=== PATIENT | male | born 1930 | race Caucasian/White ===

== ENCOUNTER 2017-01-23 13:20 | Inpatient (IN) | payer MEDICARE, OTHER ==
[~2017-01-23] VITALS: Ht 180.3 cm; Wt 84.4 kg
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
[2017-01-23 13:35] VITALS: BP 133/65; PULSE 60; RESP 16; TEMP 98.1; O2SAT 94
[2017-01-23 14:00] LABS: BASOPHIL # 0.1 TH/MM3 (0-0.2); BASOPHIL % 1.1 % (0.0-2.0); EOSINOPHIL # 0.5 TH/MM3 (0-0.4); EOSINOPHIL % 4.8 % (0.0-4.0); HEMATOCRIT 36.5 % (39.0-51.0); HEMO FLAGS DIFF FINAL; LYMPH % 15.9 % (9.0-44.0); LYMPHOCYTE # 1.6 TH/MM3 (1.0-4.8); MEAN CELL VOLUME 90.5 FL (80.0-100.0); MEAN CORPUSCULAR HEMOGLOBIN 30.6 PG (27.0-34.0); MEAN CORPUSCULAR HGB CONC 33.8 % (32.0-36.0); MONO % 8.7 % (0.0-8.0); NEUT % 69.5 % (16.0-70.0); PLATELET COUNT 216 TH/MM3 (150-450); RED BLOOD COUNT 4.03 MIL/MM3 (4.50-5.90); RED CELL DISTRIBUTION WIDTH 13.9 % (11.6-17.2); WHITE BLOOD COUNT 10.1 TH/MM3 (4.0-11.0)
[2017-01-23 14:23] LABS: BICARBONATE 29.1 MEQ/L (21.0-32.0); POTASSIUM 5.1 MEQ/L (3.5-5.1)
[2017-01-23 14:33] LABS: BACTERIA, URINE MOD /hpf; BLOOD, URINE NEG (NEG); COMMENT (UR) CULTURE INDICATED; CULTURE IF INDICATED CULTURE INDICATED; GLUCOSE,URINE TRACE mg/dL (NEG); HYALINE CAST, URINE 11 /lpf (RARE); KETONE, URINE TRACE mg/dL (NEG); NITRITE,URINE NEG (NEG); SQUAMOUS EPITHELIAL CELL URINE 1 /hpf (0-5); URINE COLOR DARK-YELLOW (YELLW/STRAW)
--- NOTE | 2017-01-23 14:37 | RADRPT ---
EXAM DATE/TIME: 01/23/2017 14:10 [facility] COMPARISON: No previous studies available for comparison. INDICATIONS : Altered mental status RADIATION DOSE: 46.55 CTDIvol (mGy) MEDICAL HISTORY : None SURGICAL HISTORY : None. ENCOUNTER: Initial ACUITY: 1 day PAIN SCALE: 0/10 LOCATION: Cranial TECHNIQUE: Multiple contiguous axial images were obtained of the head. Using automated exposure control and adj ustment of the mA and/or kV according to patient size, radiation dose was kept as low as reasonably a chievable to obtain optimal diagnostic quality images. FINDINGS: Mild cerebral atrophy is noted. Scattered periventricular and subcortical white matter small vessel ischemic changes are noted bilaterally. There is no acute infarct, acute hemorrhage, ma ss effect or extra-axial fluid collections. Partially calcified soft tissue density is noted within the left maxi llary sinus suggestive of inspissated debris or possible mass within the sinus. Clinical correlation is recommen ded. There is thickening of the wall of the left maxillary sinus indicating probable sinusitis on the left. CONCLUSION: 1. Mild cerebral atrophy. 2. Mild scattered periventricular and subcortical white matter small vessel ischemic changes bilatera lly. 3. No acute infarct, acute hemorrhage, mass effect or extra-axial fluid collections. 4. Partially calcified soft tissue density within the left maxillary sinus consistent with inspissate d debris versus sinus mass. The quinteros of the left maxillary sinus are thickened suggesting chronic s inus disease. Denzel Arenas MD on January 23, 2017 at 14:19 Board Certified Radiologist. This report was verified electronically.
[2017-01-23 14:45] LABS: AMPHETAMINE, URINE POS (NEG); BARBITURATES, URINE NEG (NEG); COCAINE, URINE NEG (NEG)
[2017-01-23] MEDS ORDERED: LIDOCAINE HCL 1% 50 ML VIAL XX ONE (14:45)
[2017-01-23] MEDS: CEPHALEXIN MONOHYDRATE 500 MG CAP PO SCH ×2 (14:54→21:20)
[2017-01-23 19:00] VITALS: BP 164/86; PULSE 58; RESP 18; TEMP 97.9; O2SAT 96
[2017-01-23] MEDS ORDERED: OMEGCAP PO (19:53)
[2017-01-23] MEDS ORDERED: ATEN25TA PO (19:53)
[2017-01-23] MEDS ORDERED: METF500T PO (19:53)
[2017-01-23] MEDS ORDERED: ENAL20TA PO (19:53)
[2017-01-23] MEDS ORDERED: MAGN400T2 PO (19:53)
[2017-01-23] MEDS ORDERED: AMPH1TAB83 PO (19:53)
[2017-01-23] MEDS ORDERED: GLIM4TAB PO (19:58)
[2017-01-23] MEDS ORDERED: OSTETAB4 PO (19:58)
[2017-01-23] MEDS ORDERED: VENL75TA PO (20:00)
[2017-01-23] MEDS ORDERED: ASPI81TA81 PO (20:07)
[2017-01-23] MEDS ORDERED: LIPI80TA PO (20:07)
[2017-01-23] MEDS ORDERED: TRAD5TAB PO (20:07)
[2017-01-23] MEDS ORDERED: COQ-100C2 PO (20:07)
[2017-01-23] MEDS ORDERED: RIVA9.5T T-DERMAL (20:07)
[2017-01-23] MEDS ORDERED: XYRE500S PO (20:07)
[2017-01-23 22:11] VITALS: BP 144/99; PULSE 69; RESP 15; TEMP 98.3; O2SAT 97
[2017-01-23] MEDS ORDERED: ACETAMINOPHEN 325 MG TAB PO PRN (23:00)
[2017-01-23] MEDS ORDERED: LORazepam 0.5 MG TAB age > 65 yrs PO PRN (23:00)
[2017-01-23] MEDS ORDERED: LORazepam 2 MG/ML VIAL - age > 65 yrs IM PRN (23:00)
[2017-01-23] MEDS ORDERED: MAGNESIUM HYDROXIDE SUSP 30 ML CUP PO PRN (23:00)
[2017-01-23] MEDS ORDERED: ALUMINUM/MAGNESIUM/SIMETH 30 ML CUP PO PRN (23:00)
[2017-01-24] MEDS ORDERED: HALOPERIDOL LACTATE 5 MG/ML AMP IM ONE (01:00)
[2017-01-24 06:14] LABS: ANION GAP 7 MEQ/L (5-15); BLOOD UREA NITROGEN 23 MG/DL (7-18); CHLORIDE 100 MEQ/L (98-107); GLOMERULAR FILTRATION RATE 38 ML/MIN (>89); POTASSIUM 4.1 MEQ/L (3.5-5.1); SODIUM (NA) 138 MEQ/L (136-145); URIC ACID 4.3 MG/DL (2.6-7.2)
[2017-01-24 06:25] VITALS: BP 121/62; PULSE 62; RESP 15; TEMP 98; O2SAT 99
[2017-01-24 06:49] LABS: HDL CHOLESTEROL 34.8 MG/DL (40.0-60.0); LDL CHOLESTEROL 68 MG/DL (0-99)
[2017-01-24 06:50] LABS: CREATINE KINASE 87 U/L (39-308)
[2017-01-24] MEDS: CEPHALEXIN MONOHYDRATE 500 MG CAP PO SCH ×2 (10:10→21:13)
[2017-01-24] MEDS ORDERED: AMPHETAMINE SULFATE PO SCH (10:45)
[2017-01-24] MEDS ORDERED: NON-FORMULARY DRUG (Linagliptin (Tradjenta) 5 MG) PO SCH (10:45)
[2017-01-24] MEDS: ENALAPRIL MALEATE 10 MG TAB PO SCH (10:45)
[2017-01-24] MEDS: GLIMEPIRIDE 4 MG TAB PO SCH (10:45)
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
[2017-01-24] MEDS ORDERED: NON-FORMULARY DRUG (Fish Oil-Cholecalciferol (Omega-3 Fish Oil/Vitamin) 1 CAP) PO SCH (12:00)
[2017-01-24] MEDS: QUEtiapine FUMARATE 25 MG TAB PO SCH (12:08)
[2017-01-24] MEDS: VENLAFAXINE HCL XR 75 MG CAP PO SCH (12:08)
[2017-01-24] MEDS: metFORMIN HCL 500 MG TAB PO SCH (12:08)
[2017-01-24] MEDS: ATENOLOL 25 MG TAB PO SCH (12:09)
[2017-01-24 14:42] LABS: HEMOGLOBIN A1b 2.3 %; HEMOGLOBIN Ao 81.8 %; HEMOGLOBIN LA1C 2.9 %; HEMOGLOBIN P3 4.5 %
[2017-01-24] MEDS: SODIUM CHLOR 0.9% 1000 ML INJ 1,000 ML IV SCH (18:00)
--- NOTE | 2017-01-24 18:03 | PD.CONS ---
HPI Service [facility] Hospitalists Consult Requested By Psychiatric service Reason for Consult Medical management Primary Care Physician No Primary Care Physician Diagnoses: History of Present Illness This is a 86-year-old male with a past medical history of hypertension, COPD, CAD s/p previous CT, DM and narcolepsy who was admitted to [facility] under [place] act for psychiatric evaluation. Hospitalist service has been consulted for medical management. Patient seen and examined today. Patient is extremely sedated after receiving Ativan and continually falls asleep during the examination therefore history is partly taken from the patient as well as review of the computerized medical record. Patient does not know who his PCP is. He states he feels well. Her nursing staff, he is alert to self only prior to receiving the Ativan. Patient denies any complaints of pain. He denies any cough, fever, chest pain, shortness of breath, abdominal pain, dysuria or diarrhea. Patient has a suprapubic catheter that was placed following a prostate surgery some time ago. Per nursing staff, patient has had repetitive falls at home. Patient was started on Keflex in the ED for urinary tract infection. CT scan of the head obtained in the ED showed no acute infarct or hemorrhage or mass effect and mild scattered periventricular and subcortical white matter small vessel ischemic changes bilaterally. Review of Systems Except as stated in HPI: all other systems reviewed are Neg (Limited review of systems completed secondary to patient's sedation) Past Family Social History Allergies: Coded Allergies: Demerol (Verified Allergy, Unknown, 01/23/17) Listed on Medic Alert pendant around patient's neck. Past Medical History Hypertension COPD CAD status post previous CT Narcolepsy DM Past Surgical History Suprapubic catheter insertion following prostate surgery Unable to obtain further surgical history due to patient sedation Reported Medications Sodium Oxybate Liq (Xyrem Liq)500 Mg/Ml Sol7.5 Mg PO HS 01/23/17 Rivastigmine Patch (Exelon Patch)9.5 mg/24 hr Patch1 Patch T-DERMAL HS #30 PATCH Ref 0 01/23/[address] (Aspir-81)81 Mg Tabdr81 Mg PO HS 01/23/17 Coenzyme Q10 (Ubidecarenone) (Coq-10)100 Mg Eid992 Mg PO HS 01/23/17 Atorvastatin (Lipitor)80 Mg Tab80 Mg PO HS #30 TAB Ref 0 01/23/17 Linagliptin (Tradjenta)5 Mg Tab5 Mg PO DAILY #30 TAB Ref 0 01/23/17 Venlafaxine (Effexor)75 Mg Tab75 Mg PO DAILY #30 TAB Ref 0 01/23/17 Misc Natural Products (Osteo Bi-Flex Advanced Do)1 Tab Tab1,500 Mg PO 01/23/17 Glimepiride 4 Mg Tab4 Mg PO DAILY #30 TAB Ref 0 Take with breakfast or first main meal 01/23/17 Magnesium Oxide 400 Mg Eoc810 PO TID Ref 0 01/23/17 Fish Oil-Cholecalciferol ([place]-3 Fish Oil/Vitamin)1,000-1,000 Mg Cap1 Cap PO Q6HR Ref 0 01/23/17 Enalapril 20 Mg Tab20 Mg PO DAILY #30 TAB Ref 0 01/23/17 Atenolol 25 Mg Tab25 Mg PO DAILY #30 TAB 01/23/17 Metformin 500 Mg Sgm139 Mg PO TID #30 TAB Ref 0 With a meal 01/23/17 Amphetamine Sulfate (Evekeo)10 Mg Tab15 Mg PO DAILY #30 TAB Ref 0 1st dose on awakening; additional doses at intervals of 4-6 hrs. Avoid late evening. If treating exogenous obesity, take 30-60 min before meals. 01/23/17 Active Ordered Medications Current Medications Medications (Trade) Dose Ordered Sig/Jose L Route Start Time Stop Time Status Last Admin (Keflex) 500 mg Q12HR PO 01/23/17 14:45 01/24/17 10:10 (Ativan) 0.5 mg Q12H PRN PO 01/23/17 23:00 01/23/17 23:08 (Ativan Inj) 0.5 mg Q12H PRN IM 01/23/17 23:00 01/24/17 13:29 (Tylenol) 650 mg Q4H PRN PO 01/23/17 23:00 (Milk Of Magnesia Liq) 30 ml DAILY PRN PO 01/23/17 23:00 (Mag-Al Plus Susp Liq) 30 ml Q6H PRN PO 01/23/17 23:00 (Ecotrin Ec) 81 mg HS PO 01/24/17 21:00 (Tenormin) 25 mg DAILY PO 01/24/17 10:45 01/24/17 12:09 (Lipitor) 80 mg HS PO 01/24/17 21:00 (Vasotec) 20 mg DAILY PO 01/24/17 10:45 (Amaryl) 4 mg DAILY PO 01/24/17 10:45 (Glucophage) 500 mg TID PO 01/24/17 13:00 Hold 01/24/17 12:08 (Exelon 9.5 Mg Patch.24hr) 1 patch HS T-DERMAL 01/24/17 21:00 (Effexor Xr) 75 mg DAILY PO 01/24/17 12:00 01/24/17 12:08 (SEROquel) 12.5 mg BID@09,12 PO 01/24/17 12:00 01/24/17 12:08 Patient Own Medication PT OWN MED: TRADJE... DAILY PO 01/25/17 09:00 Future Hold Patient Own Medication PT OWN MED: SOD... HS PO 01/24/17 21:00 Future Hold Family History Unable to obtain due to patient sedation Social History Unable to obtain due to patient sedation Physical Exam Vital Signs Vital Signs Date Time Temp Pulse Resp B/P Pulse Ox O2 Delivery O2 Flow Rate FiO2 01/24/17 06:25 98.0 62 15 121/62 99 01/23/17 22:11 98.3 69 15 144/99 97 01/23/17 19:00 97.9 58 18 164/86 96 Room Air Physical Exam GENERAL: This is a well-nourished, well-developed patient, in no apparent distress. Very sedated. SKIN: (+) Multiple eschars on right hand and elbow as well as large eschar on anterior left knee. Cool and dry. HEAD: Atraumatic. Normocephalic. No temporal or scalp tenderness. EYES: Pupils equal round and reactive. Extraocular motions intact. No scleral icterus. No injection or drainage. ENT: Nose without bleeding, purulent drainage or septal hematoma. Throat without erythema, tonsillar hypertrophy or exudate. Uvula midline. Airway patent. NECK: Trachea midline. No JVD or lymphadenopathy. Supple, nontender, no meningeal signs. CARDIOVASCULAR: Regular rate and rhythm without murmurs, gallops, or rubs. RESPIRATORY: Clear to auscultation. Breath sounds equal bilaterally. No wheezes , rales, or rhonchi. GASTROINTESTINAL: Abdomen soft, non-tender, nondistended. No hepato-splenomegaly , or palpable masses. No guarding. MUSCULOSKELETAL: Extremities without clubbing, cyanosis, or edema. No joint tenderness, effusion, or edema noted. No calf tenderness. NEUROLOGICAL: Sedated. Confused. Appears able to move all 4 extremities. Laboratory Laboratory Tests Test 01/24/17 05:02 Sodium Level 138 Potassium Level 4.1 Chloride Level 100 Carbon Dioxide Level 31.0 Anion Gap 7 Blood Urea Nitrogen 23 Creatinine 1.73 Estimat Glomerular Filtration 38 Rate Random Glucose 217 Hemoglobin A1c 7.1 Uric Acid 4.3 Calcium Level 9.1 Phosphorus Level 2.4 Magnesium Level 2.0 Total Creatine Kinase 87 Triglycerides Level 166 Cholesterol Level 136 LDL Cholesterol 68 HDL Cholesterol 34.8 Cholesterol/HDL Ratio 3.90 Vitamin B12 Level 766 25-Hydroxy Vitamin D Total 32.7 Rapid Plasma Reagin NON-REACTIVE Date/Time Procedure Status Source Growth 01/23/17 13:35 Urine Culture - Preliminary Resulted Urine Clean Catch Gram Negative Ayden Result Diagram: 01/23/17 1335 01/24/17 0502 Imaging Last [address] 01/23/17 0000 Signed Impressions: Service Date/Time: January 14:10 - CONCLUSION: 1. Mild cerebral atrophy. 2. Mild scattered periventricular and subcortical white matter small vessel ischemic changes bilaterally. 3. No acute infarct, acute hemorrhage, mass effect or extra-axial fluid collections. 4. Partially calcified soft tissue density within the left maxillary sinus consistent with inspissated debris versus sinus mass. The quinteros of the left maxillary sinus are thickened suggesting chronic sinus disease. Denzel Arenas MD Assessment and Plan Assessment and Plan 86-year-old male with a past medical history of hypertension and diabetes who was admitted to [facility] under [place] act for psychiatric evaluation. Hospitalist service has been consulted for medical management. //Dementia with behavioral disturbances Management per psychiatric team //Oversedation with Ativan Hold Ativan Gentle IV fluid hydration //UTI in patient with suprapubic catheter Patient started on Keflex in the ED Will follow up on culture results //VIRIDIANA Unknown baseline Creatinine 1.74 -> 1.73 Avoid nephrotoxic agent IV fluids A.m. labs to monitor trend //Elevated TSH Obtain total T3 and free T4 //COPD Duonebs as needed //History of narcolepsy Hold amphetamines at present. Unclear if prescribed this medication for treatment of his narcolepsy. Will address with patient tomorrow when he is more alert //Hypertension/CAD BP well-controlled at present Continue with current antihypertensive regimen ASA daily Monitor BP //Diabetes mellitus Patient resumed on home diabetic medications ISS Accu-Chek A1c 7.1 //Recurrent falls with multiple abrasions on right side PT eval/treatment Fall precautions //Dyslipidemia Continue home statin therapy //DVT prophylaxis SCD/MELA hose Written by Gela Johnson PA-C acting as scribe for Dr. Banerjee on 01/24/17 at 17:16. This note was transcribed by scribe [Gela Johnson PA-C]. I, Dr. Kolton Banerjee personally performed the history, physical exam, and medical decision making; and confirmed the accuracy of the information in the transcribed note. Authenticated by Dr. Kolton Banerjee on 01/24/17 at 22:33. Gela Johnson Jan 24, 2017 18:02 Kolton Banerjee MD Jan 24, 2017 22:33
--- NOTE | 2017-01-24 18:53 | EKG ---
Date Performed: 01/23/2017 Time Performed: 14:27:24 PTAGE: 86 years EKG: Sinus rhythm LEFT VENTRICULAR HYPERTROPHY BY VOLTAGE INFERIOR MYOCARDIAL INFARCTION, AGE INDETERMINATE ABNORMAL E CG NO PREVIOUS TRACING DOCTOR: [facility] Interpretating Date/Time 01/24/2017 18:52:38
[2017-01-24 18:57] VITALS: BP 127/64; PULSE 61; RESP 16; TEMP 97.4; O2SAT 98
[2017-01-24] MEDS ORDERED: DEXTROSE 50% IN WATER 50 ML VIAL(D50) IV PUSH PRN (19:30)
[2017-01-24] MEDS ORDERED: RESP: ALBUTEROL 2.5 MG/IPRATROPIUM 0.5 MG NEB (PRN) NEB (19:30)
[2017-01-24] MEDS ORDERED: GLUCAGON 1 MG/ML VIAL OTHER PRN (19:30)
[2017-01-24] MEDS ORDERED: NON-FORMULARY DRUG (Coenzyme Q10 (Ubidecarenone) (Coq-10) 100 MG) PO SCH (21:00)
[2017-01-24] MEDS ORDERED: SODIUM OXYBATE PO SCH ×2 (21:00)
[2017-01-24] MEDS: INSULIN ASPART SUPPLEMENTAL SCALE SQ SCH (21:00)
[2017-01-24] MEDS: ASPIRIN EC 81 MG TABEC PO SCH (21:13)
[2017-01-24] MEDS: ATORVASTATIN 80 MG TAB PO SCH (21:13)
[2017-01-24] MEDS: RIVASTIGMINE 9.5 MG/24 HOUR PATCH T-DERMAL SCH (21:17)
[2017-01-25 06:09] VITALS: BP 132/66; PULSE 78; RESP 16; TEMP 98; O2SAT 95
[2017-01-25] MEDS: SODIUM CHLOR 0.9% 1000 ML INJ 1,000 ML IV SCH (06:34)
[2017-01-25] MEDS: INSULIN ASPART SUPPLEMENTAL SCALE SQ SCH ×4 (06:36→21:21)
[2017-01-25 08:33] LABS: BICARBONATE 26.1 MEQ/L (21.0-32.0); POTASSIUM 4.3 MEQ/L (3.5-5.1)
[2017-01-25 08:35] LABS: FREE T4 0.95 NG/DL (0.76-1.46)
[2017-01-25] MEDS: ATENOLOL 25 MG TAB PO SCH (08:48)
[2017-01-25] MEDS: GLIMEPIRIDE 4 MG TAB PO SCH (08:49)
[2017-01-25] MEDS: CEPHALEXIN MONOHYDRATE 500 MG CAP PO SCH (08:49)
[2017-01-25] MEDS: ENALAPRIL MALEATE 10 MG TAB PO SCH (08:49)
[2017-01-25] MEDS: QUEtiapine FUMARATE 25 MG TAB PO SCH ×2 (08:49→12:00)
[2017-01-25] MEDS: VENLAFAXINE HCL XR 75 MG CAP PO SCH (08:49)
[2017-01-25] MEDS ORDERED: PT OWN - TRADJENTA 5 MG PO SCH (09:00)
[2017-01-25] MEDS ORDERED: AMPHETAMINE PO SCH (09:00)
[2017-01-25] MEDS ORDERED: ZIPRASIDONE MESYLATE 20 MG VIAL IM ONE ×3 (09:22→23:45)
--- NOTE | 2017-01-25 11:13 | HHI.PR ---
Subjective Remarks Follow-up on patient with hypertension, COPD, coronary artery disease status post [place], diabetes, narcolepsy and chronic indwelling suprapubic catheter. Patient remains pleasantly confused. He is oriented to self only. Reports that his suprapubic catheter was changed recently although he is unable to give further details. He denies any complaints of nausea vomiting or abdominal pain. He also denies any chest pain or shortness of breath. Adamant about going home today. Objective Vitals Vital Signs Date Time Temp Pulse Resp B/P Pulse Ox O2 Delivery O2 Flow Rate FiO2 01/25/17 06:09 98.0 78 16 132/66 95 01/24/17 18:57 97.4 61 16 127/64 98 I/O 01/24/17 01/24/17 01/24/17 01/25/17 01/25/17 01/25/17 07:00 15:00 23:00 07:00 15:00 23:00 Intake Total 600 ml 240 ml 120 ml 240 ml 240 ml Output Total 1050 ml 400 ml 325 ml 875 ml 150 ml Balance -450 ml -160 ml -205 ml -635 ml 90 ml Intake Oral 600 ml 240 ml 120 ml 240 ml 240 ml Output Urine Total 1050 ml 400 ml 325 ml 875 ml 150 ml # Bowel Movements 0 0 Result Diagram: 01/23/17 1335 01/25/17 0737 Objective Remarks GENERAL: This is a well-nourished, well-developed patient, in no apparent distress. Awake and alert. Confused. SKIN: (+) Multiple eschars on right hand and elbow as well as large eschar on anterior left knee. Cool and dry. HEAD: Atraumatic. Normocephalic. EYES: Pupils equal round and reactive. Extraocular motions intact. No scleral icterus. No injection or drainage. CARDIOVASCULAR: Regular rate and rhythm without murmurs, gallops, or rubs. RESPIRATORY: Clear to auscultation. Breath sounds equal bilaterally. No wheezes , rales, or rhonchi. GASTROINTESTINAL: Abdomen soft, non-tender, nondistended. No hepato-splenomegaly , or palpable masses. No guarding. GENITOURINARY: Suprapubic catheter in place. Dried greenish drainage around the suprapubic site. MUSCULOSKELETAL: Extremities without clubbing, cyanosis, or edema. No joint tenderness, effusion, or edema noted. No calf tenderness. NEUROLOGICAL: Oriented to self only. Confused. Appears able to move all 4 extremities. Medications and IVs Current Medications Medications (Trade) Dose Ordered Sig/Jose L Route Start Time Stop Time Status Last Admin (Keflex) 500 mg Q12HR PO 01/23/17 14:45 01/25/17 08:49 (Ativan) 0.5 mg Q12H PRN PO 01/23/17 23:00 Hold 01/23/17 23:08 (Ativan Inj) 0.5 mg Q12H PRN IM 01/23/17 23:00 Hold 01/24/17 13:29 (Tylenol) 650 mg Q4H PRN PO 01/23/17 23:00 (Milk Of Magnesia Liq) 30 ml DAILY PRN PO 01/23/17 23:00 (Mag-Al Plus Susp Liq) 30 ml Q6H PRN PO 01/23/17 23:00 (Ecotrin Ec) 81 mg HS PO 01/24/17 21:00 01/24/17 21:13 (Tenormin) 25 mg DAILY PO 01/24/17 10:45 01/25/17 08:48 (Lipitor) 80 mg HS PO 01/24/17 21:00 01/24/17 21:13 (Vasotec) 20 mg DAILY PO 01/24/17 10:45 01/25/17 08:49 (Amaryl) 4 mg DAILY PO 01/24/17 10:45 01/25/17 08:49 (Glucophage) 500 mg TID PO 01/24/17 13:00 Hold 01/24/17 12:08 (Exelon 9.5 Mg Patch.24hr) 1 patch HS T-DERMAL 01/24/17 21:00 01/24/17 21:17 (Effexor Xr) 75 mg DAILY PO 01/24/17 12:00 01/25/17 08:49 (SEROquel) 12.5 mg BID@09,12 PO 01/24/17 12:00 01/25/17 08:49 Patient Own Medication PT OWN MED: TRADJE... DAILY PO 01/25/17 09:00 Hold Patient Own Medication PT OWN MED: SOD... HS PO 01/24/17 21:00 Hold (D50w (Vial) Inj) 25 ml UNSCH PRN IV PUSH 01/24/17 19:30 (Glucagon Inj) 1 mg UNSCH PRN OTHER 01/24/17 19:30 A/P Assessment and Plan 86-year-old male with a past medical history of hypertension and diabetes who was admitted to [facility] under [place] act for psychiatric evaluation. Hospitalist service has been consulted for medical management. //Dementia with behavioral disturbances Management per psychiatric team //Oversedation with Ativan Hold Ativan Patient awake and alert today Resolved //UTI in patient with suprapubic catheter with dried greenish drainage around site Patient started on Keflex in the ED. D/C Keflex. Start po Cipro. Will follow up on urine culture results wound cx ordered of SPT site Per discussion with the , she clamps off his catheter during the day on a regular basis and patient urinates well on his own. She then unclamps at nighttime. He is due to have a suprapubic catheter change. We'll try a voiding trial. Consult urology for suprapubic catheter change and possibility of removal. //VIRIDIANA Improving Unknown baseline Creatinine 1.74 -> 1.73 -> 1.51 Avoid nephrotoxic agent encourage fluids A.m. labs to monitor trend //Elevated TSH normal total T3 and free T4 recommend follow up as outpatient with PCP //COPD Duonebs as needed //History of narcolepsy Hold amphetamines at present. Unclear if prescribed this medication for treatment of his narcolepsy. Unable to clarify prescription of amphetamines due to patients cognitive impairment //Hypertension/CAD BP well-controlled at present, 132/66 Continue with current antihypertensive regimen ASA daily Monitor BP //Diabetes mellitus Patient resumed on home diabetic medications BS running 152 - 174 ISS Accu-Chek A1c 7.1 //Recurrent falls with multiple abrasions on right side PT eval/treatment - pending Fall precautions //Dyslipidemia Continue home statin therapy //DVT prophylaxis SCD/MELA coronel Discussed with Dr. Banerjee, patient and nursing staff Gela Johnson Jan 25, 2017 11:13
[2017-01-25] MEDS: CIPROFLOXACIN 250 MG TAB PO SCH ×2 (14:00→21:18)
--- NOTE | 2017-01-25 17:01 | HHI.PYPN ---
Subjective Remarks Patient remains demented, easily agitated and in danger of harming himself and others. He requires injectable medication to help him remain safe. This physician cosigned Dr. Adams his civil commitment paperwork. Review of Systems ROS Limitations: Clinical Condition Objective Alert: Yes Bryant: Person, Place, Date, Situation Mood: Calm Affect: Euthymic Memory Intact: Immediate, Recent, Remote Hallucinations: Other Delusions: Yes Delusion Type: Other Suicidal: Ideation Homicidal: Ideation Insight/Judgment Poor Labs Test 01/25/17 07:37 Sodium Level 138 MEQ/L Potassium Level 4.3 MEQ/L Chloride Level 104 MEQ/L Carbon Dioxide Level 26.1 MEQ/L Anion Gap 8 MEQ/L Blood Urea Nitrogen 19 MG/DL Creatinine 1.51 MG/DL Estimat Glomerular Filtration 44 ML/MIN Rate Random Glucose 157 MG/DL Calcium Level 9.3 MG/DL Free Thyroxine 0.95 NG/DL Total Triiodothyronine 132 NG/DL Date/Time Procedure Status Source Growth 01/23/17 13:35 Urine Culture - Final Complete Urine Clean Catch Enterobacter Cloacae Klebsiella Pneumoniae Vitals/IOs Vital Signs Date Time Temp Pulse Resp B/P Pulse Ox O2 Delivery O2 Flow Rate FiO2 01/25/17 06:09 98.0 78 16 132/66 95 01/23/17 19:00 Room Air Intake and Output 01/24/17 01/24/17 01/25/17 08:00 16:00 00:00 Intake Total 600 ml 0 ml 360 ml Output Total 550 ml 725 ml Balance 50 ml -725 ml 360 ml Assessment & Plan Problem List: (1) Dementia ICD Code: F03.90 Assessment & Plan Estimated LOS: 7 days patient needs to be stabilized on psychotropic medication so that he can be helped with activities of daily living. Justification for Cont. Inpt. Unable to care for self and aggressive towards others. 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
[2017-01-25 17:38] VITALS: BP 131/70; PULSE 69; RESP 16; TEMP 97.7; O2SAT 97
[2017-01-25 18:42] VITALS: BP 131/70; PULSE 69; RESP 16; TEMP 97.7; O2SAT 97
--- NOTE | 2017-01-25 19:50 | MB ---
cc: LINCOLN ALMANZA DATE OF CONSULTATION: 01/25/2017. REASON FOR CONSULTATION: HISTORY OF PRESENT ILLNESS: This is an 86-year-old male with dementia. Urology was consulted to change a suprapubic tube. It is unclear to me as to why he has a suprapubic tube and it appears it has been in for a long time. I was unable to obtain history from the patient due to the fact that he is demented. PHYSICAL EXAMINATION: VITAL SIGNS: He is afebrile and vital signs are stable. GENERAL: He is a well-developed, well-nourished 86-year-old male in no acute distress. HEAD, EYES, EARS, NOSE, THROAT: normocephalic, atraumatic. Pupils equal round react to light. Extraocular muscles intact. NECK: Neck is supple. HEART: Regular rate and rhythm. LUNGS: Clear. ABDOMEN: The abdomen is soft, nontender and nondistended. Suprapubic tube is in place. : Normal phallus. The testes are descended. EXTREMITIES: No cyanosis, clubbing or edema. The SP tube was changed at the bedside, it was an 18 [place] and he tolerated procedure well. ASSESSMENT: An 86-year-old male with history of urinary retention with a suprapubic tube in place. The tube was changed without difficulty. Maintain full suprapubic tube and have him follow up with his urologist on an outpatient. Do not try to give the patient a void trial as he does not ambulate much and he has had the tube for a long time. Thank you for the consult and for allowing me to participate in the care of this patient. Lincoln FITZGERALD/TIAN /7:15 PM /7:40 PM
[2017-01-25] MEDS: RIVASTIGMINE 9.5 MG/24 HOUR PATCH T-DERMAL SCH (21:00)
[2017-01-25] MEDS: ASPIRIN EC 81 MG TABEC PO SCH (21:18)
[2017-01-25] MEDS: ATORVASTATIN 80 MG TAB PO SCH (21:18)
[2017-01-26 05:43] VITALS: BP 135/71; PULSE 76; RESP 18; TEMP 97.6; O2SAT 98
[2017-01-26] MEDS: INSULIN ASPART SUPPLEMENTAL SCALE SQ SCH ×4 (06:24→21:00)
[2017-01-26] MEDS: ENALAPRIL MALEATE 10 MG TAB PO SCH (09:03)
[2017-01-26] MEDS: CIPROFLOXACIN 250 MG TAB PO SCH ×2 (09:03→21:49)
[2017-01-26] MEDS: ATENOLOL 25 MG TAB PO SCH (09:03)
[2017-01-26] MEDS: QUEtiapine FUMARATE 25 MG TAB PO SCH ×2 (09:03→12:27)
[2017-01-26] MEDS: VENLAFAXINE HCL XR 75 MG CAP PO SCH (09:03)
[2017-01-26] MEDS: GLIMEPIRIDE 4 MG TAB PO SCH (09:03)
--- NOTE | 2017-01-26 10:23 | HHI.PR ---
Subjective Remarks Follow-up on patient with hypertension, COPD, coronary artery disease status post [place], diabetes, narcolepsy and chronic indwelling suprapubic catheter. Patient is pleasantly confused. He is oriented to self only. He is witnessed eating all of his breakfast. He appears very calm. He denies any complaints of headache, f/c, n/v, shortness of breath, chest pain or abdominal pain. Discussed with nursing staff, suprapubic catheter changed by urology yesterday. Objective Vitals Vital Signs Date Time Temp Pulse Resp B/P Pulse Ox O2 Delivery O2 Flow Rate FiO2 01/26/17 05:43 97.6 76 18 135/71 98 01/25/17 18:42 97.7 69 16 131/70 97 01/25/17 17:38 97.7 69 16 131/70 97 I/O 01/25/17 01/25/17 01/25/17 01/26/17 01/26/17 01/26/17 07:00 15:00 23:00 07:00 15:00 23:00 Intake Total 240 ml 240 ml 300 ml Output Total 875 ml 150 ml 1250 ml 200 ml Balance -635 ml 90 ml -950 ml -200 ml Intake Oral 240 ml 240 ml 300 ml Output Urine Total 875 ml 150 ml 1250 ml 200 ml # Bowel Movements 0 Result Diagram: 01/23/17 1335 01/25/17 0737 Objective Remarks GENERAL: This is a well-nourished, well-developed patient, in no apparent distress. Awake and alert. Confused. Sitting up in bed eating breakfast. SKIN: (+) Multiple eschars on right hand and elbow as well as large eschar on anterior left knee. Cool and dry. HEAD: Atraumatic. Normocephalic. EYES: Pupils equal round and reactive. Extraocular motions intact. No scleral icterus. No injection or drainage. CARDIOVASCULAR: Regular rate and rhythm without murmurs, gallops, or rubs. RESPIRATORY: Clear to auscultation. Breath sounds equal bilaterally. No wheezes , rales, or rhonchi. GASTROINTESTINAL: Abdomen soft, non-tender, nondistended. No hepato-splenomegaly , or palpable masses. No guarding. GENITOURINARY: Suprapubic catheter in place. MUSCULOSKELETAL: Extremities without clubbing, cyanosis, or edema. No joint tenderness, effusion, or edema noted. No calf tenderness. NEUROLOGICAL: Oriented to self only. Confused. Appears able to move all 4 extremities. Medications and IVs Current Medications Medications (Trade) Dose Ordered Sig/Jose L Route Start Time Stop Time Status Last Admin (Ativan) 0.5 mg Q12H PRN PO 01/23/17 23:00 Hold 01/23/17 23:08 (Ativan Inj) 0.5 mg Q12H PRN IM 01/23/17 23:00 Hold 01/24/17 13:29 (Tylenol) 650 mg Q4H PRN PO 01/23/17 23:00 (Milk Of Magnesia Liq) 30 ml DAILY PRN PO 01/23/17 23:00 (Mag-Al Plus Susp Liq) 30 ml Q6H PRN PO 01/23/17 23:00 (Ecotrin Ec) 81 mg HS PO 01/24/17 21:00 01/25/17 21:18 (Tenormin) 25 mg DAILY PO 01/24/17 10:45 01/26/17 09:03 (Lipitor) 80 mg HS PO 01/24/17 21:00 01/25/17 21:18 (Vasotec) 20 mg DAILY PO 01/24/17 10:45 01/26/17 09:03 (Amaryl) 4 mg DAILY PO 01/24/17 10:45 01/26/17 09:03 (Glucophage) 500 mg TID PO 01/24/17 13:00 Hold 01/24/17 12:08 (Exelon 9.5 Mg Patch.24hr) 1 patch HS T-DERMAL 01/24/17 21:00 01/25/17 21:00 (Effexor Xr) 75 mg DAILY PO 01/24/17 12:00 01/26/17 09:03 (SEROquel) 12.5 mg BID@09,12 PO 01/24/17 12:00 01/26/17 09:03 Patient Own Medication PT OWN MED: TRADJE... DAILY PO 01/25/17 09:00 Hold Patient Own Medication PT OWN MED: SOD... HS PO 01/24/17 21:00 Hold (D50w (Vial) Inj) 25 ml UNSCH PRN IV PUSH 01/24/17 19:30 (Glucagon Inj) 1 mg UNSCH PRN OTHER 01/24/17 19:30 (Cipro) 250 mg Q12HR PO 01/25/17 14:00 01/26/17 09:03 A/P Assessment and Plan 86-year-old male with a past medical history of hypertension and diabetes who was admitted to [facility] under [place] act for psychiatric evaluation. Hospitalist service has been consulted for medical management. //Dementia with behavioral disturbances Management per psychiatric team //Oversedation with Ativan Hold Ativan Patient awake and alert today Resolved //UTI in patient with suprapubic catheter with dried greenish drainage around site Continue on Cipro x 10 days Urine culture positive for Enterobacter and Klebsiella pneumoniae - both sensitive to Cipro wound cx ordered of SPT site - heavy growth of normal skin shanique at 24 hours. Gram stain final - no white blood cells no organisms seen Patient seen by urology, very much appreciate his assistance - suprapubic catheter changed, advised against removal //VIRIDIANA Improving Unknown baseline Creatinine 1.74 -> 1.73 -> 1.51 Avoid nephrotoxic agent encourage fluids A.m. labs to monitor trend //Elevated TSH normal total T3 and free T4 recommend follow up as outpatient with PCP //COPD Duonebs as needed //History of narcolepsy Hold amphetamines at present. Confirmed with patient's amphetamines prescribed for treatment of his narcolepsy. She had begun weaning him about a month ago, giving him only the a.m. dose. //Hypertension/CAD BP well-controlled at present, 135/71 Continue with current antihypertensive regimen ASA daily Monitor BP //Diabetes mellitus Patient resumed on home diabetic medications BS 134 ISS Accu-Chek A1c 7.1 //Recurrent falls with multiple abrasions on right side PT eval/treatment - ambulated 150 feet with fair balance, PT does not recommend any continued therapy Fall precautions //Dyslipidemia Continue home statin therapy //DVT prophylaxis SCD/MELA coronel Discussed with Dr. Banerjee, patient and nursing staff Gela Johnson Jan 26, 2017 10:23
--- NOTE | 2017-01-26 10:33 | HHI.PYPN ---
Subjective Remarks Awake, alert, pleasant and conversational this morning. He is still very confused however and his memory is markedly impaired. Review of Systems ROS Limitations: Clinical Condition Objective Alert: Yes [place]: Person Mood: Calm Affect: Euthymic Memory Intact: Immediate Hallucinations: Other Delusions: Yes Delusion Type: Other Suicidal: Ideation Homicidal: Ideation Insight/Judgment Markedly impaired. Labs Date/Time Procedure Status Source Growth 01/25/17 15:24 Gram Stain - Final Resulted Wound Other 01/25/17 15:24 Wound Culture Resulted Wound Other Pending 01/23/17 13:35 Urine Culture - Final Complete Urine Clean Catch Enterobacter Cloacae Klebsiella Pneumoniae Vitals/IOs Vital Signs Date Time Temp Pulse Resp B/P Pulse Ox O2 Delivery O2 Flow Rate FiO2 01/26/17 05:43 97.6 76 18 135/71 98 01/23/17 19:00 Room Air Intake and Output 01/25/17 01/25/17 01/26/17 08:00 16:00 00:00 Intake Total 0 ml 240 ml 300 ml Output Total 875 ml 150 ml 1250 ml Balance -875 ml 90 ml -950 ml Assessment & Plan Problem List: (1) Dementia ICD Code: F03.90 Assessment & Plan Estimated LOS 5-7: days patient continues to require stabilization on medicines due to his recent emotional and physical outbursts with staff. Justification for Cont. Inpt. Patient likely to decompensate and hurt himself or others at a lower level of care. Problem Qualifiers (1) Dementia: Qualified Code: G30.8 - Alzheimer's dementia with behavioral disturbance, unspecified timing of dementia onset Trent Hazel MD Jan 26, 2017 10:33
[2017-01-26] MEDS: metFORMIN HCL 500 MG TAB PO SCH ×2 (12:27→18:00)
[2017-01-26 14:52] LABS: BICARBONATE 25.2 MEQ/L (21.0-32.0); POTASSIUM 3.9 MEQ/L (3.5-5.1)
[2017-01-26 18:00] VITALS: BP 110/65; PULSE 61; RESP 18; TEMP 97.8; O2SAT 97
[2017-01-26] MEDS ORDERED: ZIPRASIDONE MESYLATE 20 MG VIAL IM ONE ×2 (21:47→22:00)
[2017-01-26] MEDS: ATORVASTATIN 80 MG TAB PO SCH (21:49)
[2017-01-26] MEDS: ASPIRIN EC 81 MG TABEC PO SCH (21:50)
[2017-01-26] MEDS: RIVASTIGMINE 9.5 MG/24 HOUR PATCH T-DERMAL SCH (21:51)
[2017-01-27 06:04] VITALS: BP 118/57; PULSE 65; RESP 18; TEMP 97.7; O2SAT 94
[2017-01-27] MEDS: INSULIN ASPART SUPPLEMENTAL SCALE SQ SCH ×4 (06:16→21:00)
[2017-01-27] MEDS: GLIMEPIRIDE 4 MG TAB PO SCH (10:06)
[2017-01-27] MEDS: CIPROFLOXACIN 250 MG TAB PO SCH ×2 (10:06→22:14)
[2017-01-27] MEDS: VENLAFAXINE HCL XR 75 MG CAP PO SCH (10:06)
[2017-01-27] MEDS: ENALAPRIL MALEATE 10 MG TAB PO SCH (10:07)
[2017-01-27] MEDS: metFORMIN HCL 500 MG TAB PO SCH ×3 (10:07→17:44)
[2017-01-27] MEDS: QUEtiapine FUMARATE 25 MG TAB PO SCH ×3 (10:10→21:07)
[2017-01-27] MEDS: ATENOLOL 25 MG TAB PO SCH (10:10)
--- NOTE | 2017-01-27 13:03 | HHI.PR ---
Subjective Remarks Follow-up on patient with hypertension, COPD, coronary artery disease status post [place], diabetes, narcolepsy and chronic indwelling suprapubic catheter. Patient is pleasantly confused. Oriented to self only. Discussed with nursing staff, patient pulled out suprapubic catheter which was then replaced. Otherwise no acute issues overnight. Patient denies any chest pain, shortness of breath or abdominal pain. (+)BM. Objective Vitals Vital Signs Date Time Temp Pulse Resp B/P Pulse Ox O2 Delivery O2 Flow Rate FiO2 01/27/17 06:04 97.7 65 18 118/57 94 01/26/17 18:00 97.8 61 18 110/65 97 I/O 01/26/17 01/26/17 01/26/17 01/27/17 01/27/17 01/27/17 07:00 15:00 23:00 07:00 15:00 23:00 Intake Total 720 ml 720 ml 360 ml Output Total 200 ml 500 ml 850 ml 700 ml Balance -200 ml -500 ml 720 ml -130 ml -340 ml Intake Oral 720 ml 720 ml 360 ml Output Urine Total 200 ml 500 ml 850 ml 700 ml Result Diagram: 01/23/17 1335 01/26/17 1405 Objective Remarks GENERAL: This is a well-nourished, well-developed patient, in no apparent distress. Awake and alert. Confused. Witnessed walking around the unit. SKIN: (+) Multiple eschars on right hand and elbow as well as large eschar on anterior left knee. Cool and dry. HEAD: Atraumatic. Normocephalic. EYES: Extraocular motions intact. No scleral icterus. No injection or drainage. CARDIOVASCULAR: Regular rate and rhythm without murmurs, gallops, or rubs. RESPIRATORY: Clear to auscultation. Breath sounds equal bilaterally. No wheezes , rales, or rhonchi. GASTROINTESTINAL: Abdomen soft, non-tender, nondistended. No hepato-splenomegaly , or palpable masses. No guarding. GENITOURINARY: Suprapubic catheter in place. MUSCULOSKELETAL: Extremities without clubbing, cyanosis, or edema. No joint tenderness, effusion, or edema noted. No calf tenderness. NEUROLOGICAL: Oriented to self only. Confused. Appears able to move all 4 extremities. Medications and IVs Current Medications Medications (Trade) Dose Ordered Sig/Jose L Route Start Time Stop Time Status Last Admin (Ativan) 0.5 mg Q12H PRN PO 01/23/17 23:00 Hold 01/23/17 23:08 (Ativan Inj) 0.5 mg Q12H PRN IM 01/23/17 23:00 Hold 01/24/17 13:29 (Tylenol) 650 mg Q4H PRN PO 01/23/17 23:00 (Milk Of Magnesia Liq) 30 ml DAILY PRN PO 01/23/17 23:00 (Mag-Al Plus Susp Liq) 30 ml Q6H PRN PO 01/23/17 23:00 (Ecotrin Ec) 81 mg HS PO 01/24/17 21:00 01/26/17 21:50 (Tenormin) 25 mg DAILY PO 01/24/17 10:45 01/27/17 10:10 (Lipitor) 80 mg HS PO 01/24/17 21:00 01/26/17 21:49 (Vasotec) 20 mg DAILY PO 01/24/17 10:45 01/27/17 10:07 (Amaryl) 4 mg DAILY PO 01/24/17 10:45 01/27/17 10:06 (Glucophage) 500 mg TID PO 01/24/17 13:00 01/27/17 10:07 (Exelon 9.5 Mg Patch.24hr) 1 patch HS T-DERMAL 01/24/17 21:00 01/26/17 21:51 (Effexor Xr) 75 mg DAILY PO 01/24/17 12:00 01/27/17 10:06 (SEROquel) 12.5 mg BID@09,12 PO 01/24/17 12:00 01/27/17 10:10 Patient Own Medication PT OWN MED: TRADJE... DAILY PO 01/25/17 09:00 Hold Patient Own Medication PT OWN MED: SOD... HS PO 01/24/17 21:00 Hold (D50w (Vial) Inj) 25 ml UNSCH PRN IV PUSH 01/24/17 19:30 (Glucagon Inj) 1 mg UNSCH PRN OTHER 01/24/17 19:30 (Cipro) 250 mg Q12HR PO 01/25/17 14:00 02/04/17 13:59 01/27/17 10:06 A/P Assessment and Plan 86-year-old male with a past medical history of hypertension and diabetes who was admitted to [facility] under [employer] act for psychiatric evaluation. Hospitalist service has been consulted for medical management. //Dementia with behavioral disturbances Management per psychiatric team //Oversedation with Ativan Resolved //UTI in patient with suprapubic catheter with dried greenish drainage around site Continue on Cipro x 10 days Urine culture positive for Enterobacter and Klebsiella pneumoniae - both sensitive to Cipro wound cx ordered of SPT site - heavy growth of normal skin shanique at 24 hours. Gram stain final - no white blood cells no organisms seen Patient seen by urology, very much appreciate his assistance - suprapubic catheter changed, advised against removal Per nursing staff, patient pulled out suprapubic catheter which was then replaced. //VIRIDIANA Unknown baseline Creatinine 1.74 -> 1.73 -> 1.51 -> 1.62, todays lab pending Hold ACEI Avoid nephrotoxic agent encourage fluids A.m. labs to monitor trend //Elevated TSH normal total T3 and free T4 recommend follow up as outpatient with PCP //COPD Duonebs as needed //History of narcolepsy Hold amphetamines at present. Confirmed with patient's amphetamines prescribed for treatment of his narcolepsy. She had begun weaning him about a month ago, giving him only the a.m. dose. //Hypertension/CAD BP 118/57 Hold Vasotec, may resume at a lower dose Continue with current antihypertensive regimen ASA daily Monitor BP //Diabetes mellitus Patient resumed on home diabetic medications BS 150 ISS Accu-Chek A1c 7.1 //Recurrent falls with multiple abrasions on right side PT eval/treatment - ambulated 150 feet with fair balance, PT does not recommend any continued therapy Fall precautions //Dyslipidemia Continue home statin therapy //DVT prophylaxis SCD/MELA hose Patient medically stable to be transferred to psychiatric unit. Discussed with Dr. Banerjee, patient and nursing staff Gela Johnson Jan 27, 2017 13:03
[2017-01-27 13:52] LABS: BICARBONATE 25.4 MEQ/L (21.0-32.0); POTASSIUM 4.7 MEQ/L (3.5-5.1)
--- NOTE | 2017-01-27 14:18 | HHI.PYPN ---
Subjective Remarks Pt seen and discussed with staff. Pt has been wandering unit and c/o that he cannot get out of here. He states that he believes that he is [place] and he is upset that "they allow people from different schools here and we can't get out." Staff report that he is easily agitated and can get aggressive. No SI/ HI. Objective Alert: Yes [place]: Person Mood: Anxious Affect: Other (congruent) Memory Intact: Immediate Hallucinations: Other (none) Delusions: Yes Delusion Type: Paranoid Suicidal: Ideation (none) Homicidal: Ideation (none) Insight/Judgment poor Labs Test 01/27/17 12:47 Sodium Level 137 MEQ/L Potassium Level 4.7 MEQ/L Chloride Level 100 MEQ/L Carbon Dioxide Level 25.4 MEQ/L Anion Gap 12 MEQ/L Blood Urea Nitrogen 33 MG/DL Creatinine 2.13 MG/DL Estimat Glomerular Filtration 30 ML/MIN Rate Random Glucose 141 MG/DL Calcium Level 9.3 MG/DL Date/Time Procedure Status Source Growth 01/25/17 15:24 Gram Stain - Final Complete Wound Other 01/25/17 15:24 Wound Culture - Final Complete Wound Other HEAVY GROWTH NORMAL SKIN MIRIAM... 01/23/17 13:35 Urine Culture - Final Complete Urine Clean Catch Enterobacter Cloacae Klebsiella Pneumoniae Vitals/IOs Vital Signs Date Time Temp Pulse Resp B/P Pulse Ox O2 Delivery O2 Flow Rate FiO2 01/27/17 06:04 97.7 65 18 118/57 94 01/23/17 19:00 Room Air Intake and Output 01/26/17 01/26/17 01/26/17 07:59 15:59 23:59 Intake Total 720 ml Output Total 200 ml 500 ml Balance -200 ml -500 ml 720 ml Assessment & Plan Problem List: (1) Dementia ICD Code: F03.90 Assessment & Plan Continue current tx plan. Pt to be transferred to 2500 unit once hospitalist clears him for transfer to psychiatry floor. Estimated LOS: days Justification for Cont. Inpt. impairments in self care and safety. Problem Qualifiers (1) Dementia: Qualified Code: G30.8 - Alzheimer's dementia with behavioral disturbance, unspecified timing of dementia onset Tracy Rolle MD Jan 27, 2017 14:18
[2017-01-27] MEDS ORDERED: PILL SPLITTER OTHER PRN (14:30)
[2017-01-27 17:06] VITALS: BP 110/74; PULSE 64; RESP 20; TEMP 97.5
[2017-01-27] MEDS ORDERED: PATIENT OWN MEDICATION PO SCH (21:00)
[2017-01-27] MEDS: ASPIRIN EC 81 MG TABEC PO SCH (21:06)
[2017-01-27] MEDS: RIVASTIGMINE 9.5 MG/24 HOUR PATCH T-DERMAL SCH (22:15)
[2017-01-27] MEDS: ATORVASTATIN 80 MG TAB PO SCH (22:15)
[2017-01-28 05:55] VITALS: BP 134/62; PULSE 61; RESP 18; TEMP 98.2; O2SAT 98
[2017-01-28] MEDS: INSULIN ASPART SUPPLEMENTAL SCALE SQ SCH ×4 (06:22→21:00)
[2017-01-28] MEDS: ATENOLOL 25 MG TAB PO SCH (08:40)
[2017-01-28] MEDS: metFORMIN HCL 500 MG TAB PO SCH ×2 (08:40→13:00)
[2017-01-28] MEDS: GLIMEPIRIDE 4 MG TAB PO SCH (08:40)
[2017-01-28] MEDS: VENLAFAXINE HCL XR 75 MG CAP PO SCH (08:40)
[2017-01-28] MEDS: CIPROFLOXACIN 250 MG TAB PO SCH ×2 (08:41→20:57)
[2017-01-28] MEDS: QUEtiapine FUMARATE 25 MG TAB PO SCH ×3 (09:00→20:58)
[2017-01-28 10:04] LABS: BICARBONATE 29.8 MEQ/L (21.0-32.0)
--- NOTE | 2017-01-28 15:10 | HHI.PYPN ---
Subjective Remarks Patient seen and examined. Chart reviewed. Case discussed with nursing staff, counselor and occupational therapist in treatment team. Patient transferred down from MedPsych unit to geropsychiatric unit. Medical issues include VIRIDIANA, diabetes, COPD, history of narcolepsy. On my examination today, the patient is calm and pleasant. He is oriented to person only. No AVH. No suicidal or homicidal ideation voiced. Denies side effects from medications. Review of Systems ROS Limitations: Poor Historian Except as stated in HPI: all other systems reviewed are Neg Objective Alert: Yes [place]: Person Mood: Calm Affect: Blunted Memory Intact: Comment (seems impaired on clinical exam) Hallucinations: Other (none) Delusions: No Delusion Type: Other (no delusions elicited today) Suicidal: Ideation (no SI voiced) Homicidal: Ideation (no HI voiced) Insight/Judgment Poor Remarks No motor abnormalities noted Labs Test 01/28/17 07:34 Sodium Level 138 MEQ/L Potassium Level 4.0 MEQ/L Chloride Level 99 MEQ/L Carbon Dioxide Level 29.8 MEQ/L Anion Gap 9 MEQ/L Blood Urea Nitrogen 42 MG/DL Creatinine 2.17 MG/DL Estimat Glomerular Filtration 29 ML/MIN Rate Random Glucose 149 MG/DL Calcium Level 9.6 MG/DL Date/Time Procedure Status Source Growth 01/25/17 15:24 Gram Stain - Final Complete Wound Other 01/25/17 15:24 Wound Culture - Final Complete Wound Other HEAVY GROWTH NORMAL SKIN MIRIAM... Labs reviewed. I note the patient's GFR is decreasing. Vitals/IOs Vital Signs Date Time Temp Pulse Resp B/P Pulse Ox O2 Delivery O2 Flow Rate FiO2 01/28/17 05:55 98.2 61 18 134/62 98 Intake and Output 01/27/17 01/27/17 01/28/17 08:00 16:00 00:00 Intake Total 720 ml 960 ml 600 ml Output Total 850 ml 700 ml 100 ml Balance -130 ml 260 ml 500 ml Assessment & Plan Problem List: (1) Dementia ICD Code: F03.90 Assessment & Plan Continue Seroquel as ordered. I will make a Haldol PRN available for agitation although the patient is presently calm as I said. Appreciate hospitalist library consultant input. Continue other medications and care as ordered. Justification for Cont. Inpt. Complicating conditions, decreasing GFR. Final discharge planning. Discharge Planning Counselor informs me that patient has been accepted to [facility] and could leave tomorrow, however patient's medical issues may complicate the discharge. Request HC Surrog/Guard Advoc?: Yes Problem Qualifiers (1) Dementia: Qualified Code: G30.8 - Alzheimer's dementia with behavioral disturbance, unspecified timing of dementia onset Serg Archibald MD Jan 28, 2017 15:09
--- NOTE | 2017-01-28 15:20 | RADRPT ---
EXAM DATE/TIME: 01/28/2017 14:11 [place] COMPARISON: No previous studies available for comparison. INDICATIONS : Increased BUN/creatinine. MEDICAL HISTORY : Dementia. Alzheimer's. Carcinoma, prostate. [place]. Hypercholesterolemia. Irregular heartbeat. HTN. Sleep apnea. Incontinence. UTI. Arthritis. Diabetes. SURGICAL HISTORY : Pacemaker. Suprapubic catheter. Prostate surgery. ENCOUNTER: Initial ACUITY: 1 day PAIN SCORE: 0/10 LOCATION: Bilateral flank MEASUREMENTS: RIGHT KIDNEY: 8.7 x 5.1 x 5.1 cm LEFT KIDNEY: 9.7 x 4.6 x 5.8 cm FINDINGS: The kidneys demonstrates increased echogenicity of the cortex compatible with medical renal disease. No hydronephrosis or mass lesions are identified. There are simple cysts on the right the largest basim suring 4 cm in the upper pole. A Whitaker catheter is present within the bladder which does not allow fo r evaluation. CONCLUSION: 1. Echogenic kidneys bilaterally compatible with medical renal disease. Serg Moreno MD on January 28, 2017 at 15:18 Board Certified Radiologist. This report was verified electronically.
[2017-01-28] MEDS ORDERED: HALOPERIDOL LACTATE 5 MG/ML AMP IM PRN (16:00)
--- NOTE | 2017-01-28 16:15 | HHI.PR ---
Subjective Remarks Follow-up visit HTN, COPD, CAD, DM, chronic indwelling suprapubic catheter, VIRIDIANA on CKD. Patient seen and examined today. Confuse. Able to follow some commands and respond to some questions. Suprapubic catheter in place draining clear yellow urine. Denies pain and discomfort. Denies SOB/ dyspnea. Denies chest pain, palpitations, headaches, dizziness. Denies fevers, chills, n/v/d. Objective Vitals Vital Signs Date Time Temp Pulse Resp B/P Pulse Ox O2 Delivery O2 Flow Rate FiO2 01/28/17 05:55 98.2 61 18 134/62 98 01/27/17 17:06 97.5 64 20 110/74 I/O 01/27/17 01/27/17 01/27/17 01/28/17 01/28/17 01/28/17 07:00 15:00 23:00 07:00 15:00 23:00 Intake Total 720 ml 960 ml 600 ml 1440 ml Output Total 850 ml 700 ml 100 ml 1250 ml 100 ml Balance -130 ml 260 ml 500 ml -1250 ml 1340 ml Intake Oral 720 ml 960 ml 600 ml 1440 ml Output Urine Total 850 ml 700 ml 100 ml 1250 ml 100 ml Result Diagram: 01/23/17 1335 01/28/17 0734 Imaging Last Impressions Renal Ultrasound 01/28/17 0000 Signed Impressions: Service Date/Time: Saturday, January 28, 2017 14:11 - CONCLUSION: 1. Echogenic kidneys bilaterally compatible with medical renal disease. Serg Moreno MD Head CT 01/23/17 0000 Signed Impressions: Service Date/Time: January 14:10 - CONCLUSION: 1. Mild cerebral atrophy. 2. Mild scattered periventricular and subcortical white matter small vessel ischemic changes bilaterally. 3. No acute infarct, acute hemorrhage, mass effect or extra-axial fluid collections. 4. Partially calcified soft tissue density within the left maxillary sinus consistent with inspissated debris versus sinus mass. The quinteros of the left maxillary sinus are thickened suggesting chronic sinus disease. Denzel Arenas MD Objective Remarks GENERAL: This is a well-nourished, well-developed patient, in no apparent distress. HEENT: Normocephalic. Pupils equal round and reactive. Nose without bleeding. Airway patent. NECK: Trachea midline. No JVD. Supple. CARDIOVASCULAR: Regular rate and rhythm without murmurs, gallops, or rubs. RESPIRATORY: Clear to auscultation. Breath sounds equal bilaterally. No wheezes , rales, or rhonchi. GASTROINTESTINAL: Abdomen soft, non-tender, nondistended. Bowel Sounds normoactive x4. : Suprapubic catheter in place draining clear yellow urine. MUSCULOSKELETAL: Extremities without clubbing, cyanosis, bilateral lower extremity trace edema. NEUROLOGICAL: Awake and alert. Confuse. Able to follow commands. BUCK. Normal speech. A/P Problem List: (1) Dementia ICD Code: F03.90 Status: Acute (2) UTI (urinary tract infection) ICD Code: N39.0 Status: Acute Assessment and Plan Pt. is 86-year-old male with a past medical history of hypertension and diabetes who was admitted to [facility] under [employer] act for psychiatric evaluation. Hospitalist service has been consulted for medical management. Dementia with behavioral disturbances Management per psychiatric team Oversedation with Ativan Resolved UTI in patient with suprapubic catheter with dried greenish drainage around site Continue on Cipro x 10 days Urine culture positive for Enterobacter and Klebsiella pneumoniae - both sensitive to Cipro wound cx ordered of SPT site - heavy growth of normal skin shanique at 24 hours. Gram stain final - no white blood cells no organisms seen Patient seen by urologist - suprapubic catheter changed, advised against removal Per nursing staff, patient pulled out suprapubic catheter which was then replaced. Repeat UA. May possibly switch Cipro to Ceftin secondary to VIRIDIANA on CKD VIRIDIANA on CKD 3? Unknown baseline. Nursing to request information from PCP to call SB. Creatinine 1.74 -> 1.73 -> 1.51 -> 1.62 -->2.13 -->2.17 Hold ACEI, hold metformin Avoid nephrotoxic agent encourage fluids Ultrasound renal showed echogenic kidneys bilaterally compatible with medical renal disease Possible CKD 3. If patient does not improve with by mouth fluids, we'll consider to transfer to [facility] medical psych unit for IV fluid hydration Monitor BMP Elevated TSH normal total T3 and free T4 recommend follow up as outpatient with PCP COPD, not in exacerbation Duonebs as needed History of narcolepsy Hold amphetamines at present. Confirmed with patient's amphetamines prescribed for treatment of his narcolepsy. She had begun weaning him about a month ago, giving him only the a.m. dose. Hypertension/CAD Hold Vasotec, may resume at a lower dose Continue with current antihypertensive regimen ASA daily Monitor BP Diabetes mellitus Patient resumed on home diabetic medications except for metformin ISS Accu-Chek A1c 7.1 Recurrent falls with multiple abrasions on right side PT eval/treatment - ambulated 150 feet with fair balance, PT does not recommend any continued therapy Fall precautions Dyslipidemia Continue home statin therapy DVT prophylaxis SCD/TEDs, early ambulation with assist Discussed with patient, nursing Written by Jyoti Mullen, acting as scribe for Dr. Banerjee on 01/28/17 at 16: 14. This note was transcribed by scribe [Jyoti Mullen]. I, Dr. Kolton Banerjee personally performed the history, physical exam, and medical decision making; and confirmed the accuracy of the information in the transcribed note. Authenticated by Dr. Kolton Banerjee on 01/28/17 at 23:12. Problem Qualifiers (1) Dementia: Qualified Code: G30.8 - Alzheimer's dementia with behavioral disturbance, unspecified timing of dementia onset (2) UTI (urinary tract infection): Qualified Code: N39.0 - Urinary tract infection without hematuria, site unspecified Jyoti Jaffe Jan 28, 2017 16:15 Kolton Banerjee MD Jan 28, 2017 23:12
[2017-01-28 16:16] LABS: BACTERIA, URINE RARE /hpf; BLOOD, URINE SMALL (NEG); GLUCOSE,URINE NEG (NEG); KETONE, URINE NEG (NEG); MUCUS URINE FEW /lpf (OCC); NITRITE,URINE NEG (NEG); PH, URINE 5.5 (5.0-8.5); URINE COLOR YELLOW (YELLW/STRAW)
[2017-01-28 16:20] LABS: COMMENT (UR) CATH-CULTURE IND; CULTURE IF INDICATED CATH CULTURE IND
[2017-01-28 18:00] VITALS: BP 127/65; PULSE 76; RESP 17; O2SAT 95
[2017-01-28] MEDS: HALOPERIDOL 2 MG TAB PO PRN (18:30)
[2017-01-28] MEDS: RIVASTIGMINE 9.5 MG/24 HOUR PATCH T-DERMAL SCH (20:57)
[2017-01-28] MEDS: ASPIRIN EC 81 MG TABEC PO SCH (20:57)
[2017-01-28] MEDS: ATORVASTATIN 80 MG TAB PO SCH (20:58)
[2017-01-29] MEDS: HALOPERIDOL 2 MG TAB PO PRN ×2 (02:39→10:33)
[2017-01-29 05:23] VITALS: BP 141/67; PULSE 75; RESP 16; TEMP 98.4; O2SAT 95
[2017-01-29] MEDS: INSULIN ASPART SUPPLEMENTAL SCALE SQ SCH ×2 (06:34→11:00)
[2017-01-29 08:32] LABS: BICARBONATE 29.2 MEQ/L (21.0-32.0); POTASSIUM 4.1 MEQ/L (3.5-5.1)
[2017-01-29] MEDS: GLIMEPIRIDE 4 MG TAB PO SCH (09:00)
[2017-01-29] MEDS: ATENOLOL 25 MG TAB PO SCH (09:24)
[2017-01-29] MEDS: VENLAFAXINE HCL XR 75 MG CAP PO SCH (09:24)
[2017-01-29] MEDS: CIPROFLOXACIN 250 MG TAB PO SCH (09:24)
[2017-01-29] MEDS: QUEtiapine FUMARATE 25 MG TAB PO SCH ×2 (09:25→12:00)
[2017-01-29] MEDS ORDERED: CIPR250T52 PO (11:18)
[2017-01-29] MEDS ORDERED: QUET1TAB7 PO (11:57)
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
--- NOTE | 2017-01-29 13:43 | HHI.PR ---
Subjective Remarks Follow-up visit HTN, COPD, CAD, DM, chronic indwelling suprapubic catheter, VIRIDIANA on CKD. Patient seen and examined today by myself and Dr. Jackson. Patient sitting up at table eating lunch with . Patient is confused. Does follow commands when asked. Denies any new complaints. Denies any shortness of breath, chest pain or palpitations. According to , patient needs to be reminded and encouraged to drink fluids regularly. Plan to discharge today to [facility]. Objective Vitals Vital Signs Date Time Temp Pulse Resp B/P Pulse Ox O2 Delivery O2 Flow Rate FiO2 01/29/17 05:23 98.4 75 16 141/67 95 01/28/17 18:00 76 17 127/65 95 I/O 01/28/17 01/28/17 01/28/17 01/29/17 01/29/17 01/29/17 07:00 15:00 23:00 07:00 15:00 23:00 Intake Total 1440 ml 480 ml 408 ml Output Total 1250 ml 100 ml 1200 ml Balance -1250 ml 1340 ml 480 ml -792 ml Intake Oral 1440 ml 480 ml 408 ml Output Urine Total 1250 ml 100 ml 1200 ml # Voids 3 # Bowel Movements 0 Result Diagram: 01/29/17 0658 Imaging Last Impressions Renal Ultrasound 01/28/17 0000 Signed Impressions: Service Date/Time: Saturday, January 28, 2017 14:11 - CONCLUSION: 1. Echogenic kidneys bilaterally compatible with medical renal disease. Serg Moreno MD Head CT 01/23/17 0000 Signed Impressions: Service Date/Time: January 14:10 - CONCLUSION: 1. Mild cerebral atrophy. 2. Mild scattered periventricular and subcortical white matter small vessel ischemic changes bilaterally. 3. No acute infarct, acute hemorrhage, mass effect or extra-axial fluid collections. 4. Partially calcified soft tissue density within the left maxillary sinus consistent with inspissated debris versus sinus mass. The quinteros of the left maxillary sinus are thickened suggesting chronic sinus disease. Denzel Arenas MD Objective Remarks GENERAL: Well-nourished, well-developed patient in NAD. SKIN: Warm and dry. No rash. HEENT: Normocephalic. Atraumatic.Pupils equal and round. Mucous membranes pink and moist. Supple. Trachea midline. Airway patent. CARDIOVASCULAR: Regular rate and rhythm. S1, S2 noted. No murmur appreciated. RESPIRATORY: No accessory muscle use. Clear to auscultation. Breath sounds equal bilaterally. GASTROINTESTINAL: Abdomen soft, non-tender, nondistended. Normoactive bowel sounds x4. : Supra pubic cath in place. MUSCULOSKELETAL: No obvious deformities. Extremities without clubbing, cyanosis , or edema. NEUROLOGICAL: Awake and alert. Confused. Follows commands. Normal speech. A/P Problem List: (1) Dementia ICD Code: F03.90 Status: Acute (2) UTI (urinary tract infection) ICD Code: N39.0 Status: Acute Assessment and Plan Pt. is 86-year-old male with a past medical history of hypertension and diabetes who was admitted to [facility] under Ray[place] act for psychiatric evaluation. Hospitalist service following for medical management. Dementia with behavioral disturbances - Management per psychiatric team UTI in patient with suprapubic catheter with dried greenish drainage around site - Continue on Cipro x 10 days. - Urine culture positive for Enterobacter and Klebsiella pneumoniae - both sensitive to Cipro - Wound cx ordered of SPT site - heavy growth of normal skin shanique at 24 hours. Gram stain final - no white blood cells no organisms seen - Patient seen by urologist - suprapubic catheter changed, advised against removal. - Per nursing staff, patient pulled out suprapubic catheter which was then replaced. - Repeat UA, NGTD. Creatinine improving, currently 1.87. Encourage PO intake and hydration. VIRIDIANA on CKD 3 - Per patient's baseline creatinine is roughly 1.5. - Creatinine 1.74 -> 1.73 -> 1.51 -> 1.62 -->2.13 -->2.17, currently 1.87. - Hold ACEI, hold metformin - Avoid nephrotoxic agent - Encourage fluids - Ultrasound renal showed echogenic kidneys bilaterally compatible with medical renal disease - Monitor BMP Elevated TSH - Normal total T3 and free T4 - Recommend follow up as outpatient with PCP in 1 week. COPD, not in exacerbation - Duonebs as needed History of narcolepsy - Hold amphetamines at present. Confirmed with patient's amphetamines prescribed for treatment of his narcolepsy. She had begun weaning him about a month ago, giving him only the a.m. dose. Hypertension/CAD - Hold Vasotec. - Continue with current antihypertensive regimen - ASA daily - Monitor BP Diabetes mellitus - Patient resumed on home diabetic medications except for metformin - ISS - Accu-Chek - A1c 7.1 Recurrent falls with multiple abrasions on right side - PT eval/treatment - ambulated 150 feet with fair balance, PT does not recommend any continued therapy - Fall precautions Dyslipidemia - Continue home statin therapy DVT prophylaxis - SCD/TEDs, early ambulation with assist Discussed with patient and . Written by Olga Smith, acting as scribe for Dr. Jackson on 01/29/17 at 1200. This note was transcribed by scribe [[email or web address] Shah]. I, Dr. Duy Jackson personally performed the history, physical exam, and medical decision making; and confirmed the accuracy of the information in the transcribed note. Authenticated by Dr. Duy Jackson on 01/29/17 at 1200 Discharge Planning Discharge to [facility] today. Problem Qualifiers (1) Dementia: Qualified Code: G30.8 - Alzheimer's dementia with behavioral disturbance, unspecified timing of dementia onset (2) UTI (urinary tract infection): Qualified Code: N39.0 - Urinary tract infection without hematuria, site unspecified Olga Smith Jan 29, 2017 13:43 Duy Jackson MD Jan 29, 2017 17:03
== END 2017-01-29 13:55 | DRG 884 ==
LOC: NEDAMB 13:20 → NEDA 20:58 → H4EA 22:00 → H250 01-27 19:57
PROVIDERS: ADMIT Psychiatry & Neurology Psychiatry; ATTEND Psychiatry & Neurology Psychiatry
DX: F03.91 Unspecified dementia, unspecified severity, with behavioral disturbance (principal); N17.9 Acute kidney failure, unspecified; N39.0 Urinary tract infection, site not specified; J44.9 Chronic obstructive pulmonary disease, unspecified; E11.9 Type 2 diabetes mellitus without complications; I10 Essential (primary) hypertension; G47.419 Narcolepsy without cataplexy; Z72.0 Tobacco use; I25.10 Atherosclerotic heart disease of native coronary artery without angina pectoris; E78.5 Hyperlipidemia, unspecified; R33.9 Retention of urine, unspecified
CPT/HCPCS: 70450; 76775; 80048; 80061; 80307; 81001; 82306; 82550; 82607; 82948; 83036; 83735; 84100; 84439; 84443; 84480; 84550; 85025; 86403; 86592; 87070; 87077; 87086; 87186; 87205; 93005; J1630; J1815; J2060; J3486; J7030